=== PATIENT | female | born 1960 | race Caucasian/White ===

== ENCOUNTER 2019-01-16 08:03 | Emergency (ER) | payer MEDICARE, MEDICAID ==
[2019-01-16 08:41] LABS: ABSOLUTE LYMPHOCYTES (AUTO) 1.4 10^3/uL (0.5-4.7); ABSOLUTE MONOCYTES (AUTO) 0.4 10^3/uL (0.1-1.4); ABSOLUTE NEUT (AUTO) 4.6 10^3/uL (1.7-8.2); BASOPHILS % (AUTO) 0.6 % (0-2); EOSINOPHILS % (AUTO) 0.4 % (0-6); HEMATOCRIT 37.1 % (36.0-47.0); HEMOGLOBIN 12.6 g/dL (12.0-15.5); LYMPHOCYTES % (AUTO) 21.4 % (13-45); MEAN CORPUSCULAR HEMOGLOBIN 29.5 pg (27.0-33.4); MEAN CORPUSCULAR HGB CONC 33.8 g/dL (32.0-36.0); MEAN CORPUSCULAR VOLUME 87 fl (80-97); MONOCYTES % (AUTO) 5.6 % (3-13); PLATELET COUNT 169 10^3/uL (150-450); RED BLOOD COUNT 4.26 10^6/uL (3.72-5.28); RED CELL DISTRIBUTION WIDTH 13.4 % (11.5-14.0); TOTAL CELLS COUNTED % (AUTO) 100 %; WHITE BLOOD COUNT 6.4 10^3/uL (4.0-10.5)
[2019-01-16] MEDS ORDERED: NORMAL SALINE 1000 ML 1,000 ML IV ONE (08:43)
--- NOTE | 2019-01-16 08:45 | ER Document Report ---
ED General - General Mode of Arrival: Medic Information source: Emergency Med Personnel - HPI Onset: Just prior to arrival Quality of pain: No pain Associated symptoms: None <FAUSTO DICK - Last Filed: 01/16/19 20:11> <BUCK BLACKBURN - Last Filed: 01/17/19 06:34> <KATE GONZALEZ - Last Filed: 01/17/19 10:02> <FRANCISCO JAVIER HIGGINBOTHAM - Last Filed: 01/17/19 12:08> - General Chief Complaint: Psych Problem Stated Complaint: PSYCH PROBLEM Time Seen by Provider: 01/16/19 08:18 Primary Care Provider: [facility] [Outside] - Follow up as needed [facility] [Outside] - Follow up as needed Notes: Patient presents to the emergency department via EMS. Patient was found wandering down the road barefoot. Patient was telling the paramedics they are going to kill me. Patient was very paranoid flailing her arms around. Patient does not have any kind of identification on her. Patient does appear to be very dehydrated urine is very dark-colored mouth is dry no dentures in. No obvious trauma noted. Skin with multiple insect bites. No obvious IV tracts noted (FAUSTO DICK) - Related Data Allergies/Adverse Reactions: No Known Allergies Allergy (Unverified 01/16/19 19:42) Past Medical History - General Information source: Patient - Social History Smoking Status: Current Every Day Smoker Cigarette use (# per day): Yes Frequency of alcohol use: None Drug Abuse: None - denies Family History: Reviewed & Not Pertinent Patient has suicidal ideation: No Patient has homicidal ideation: No - Medical History Medical History: Negative Past Surgical History: Reports: Hx Inguinal Hernia <FAUSTO DICK - Last Filed: 01/16/19 20:11> - Social History Family History: Reviewed & Not Pertinent <BUCK BLACKBURN - Last Filed: 01/17/19 06:34> Review of Systems <FAUSTO DICK - Last Filed: 01/16/19 20:11> - Review of Systems Notes: Review HPI for review of systems., All other systems negative (FAUSTO DICK) Physical Exam - General General appearance: Other - Patient has been medicated with Benadryl and Haldol. Patient does respond to the name Piedad. And will open her eyes with verbal stimulation In distress: None - HEENT Head: Normocephalic Eyes: Normal Conjunctiva: Normal Extraocular movements intact: Yes Eyelashes: Normal Pupils: PERRL Nasal: Normal Mouth/Lips: Normal - no teeth, no dentures Mucous membranes: Dry Neck: Normal, Supple - Respiratory Respiratory status: No respiratory distress Chest status: Nontender Breath sounds: Normal Chest palpation: Normal - Cardiovascular Rhythm: Regular Heart sounds: Normal auscultation Murmur: Yes - Abdominal Inspection: Normal Distension: No distension Bowel sounds: Normal Tenderness: Nontender Organomegaly: No organomegaly - Back Back: Normal, Nontender - Extremities General upper extremity: Normal ROM General lower extremity: Normal ROM - Skin Skin Temperature: Warm Skin Moisture: Dry Location of irregularity: Generalized Irregularity with: Other - insect bites <FAUSTO DICK - Last Filed: 01/16/19 20:11> - Vital signs Vitals: Temp Pulse Resp BP Pulse Ox 97.4 F 75 16 154/68 H 100 01/16/19 08:04 01/16/19 08:04 01/16/19 08:04 01/16/19 08:04 01/16/19 08:04 Course - Laboratory Result Diagrams: 01/16/19 08:10 01/16/19 08:10 - Diagnostic Test Radiology reviewed: Image reviewed, Reports reviewed - EXAM DESCRIPTION: CT HEAD WITHOUT COMPLETED DATE/TIME: 01/16/2019 8:56 am REASON FOR STUDY: change in loc COMPARISON: None. TECHNIQUE: Axial images acquired through the brain without intravenous contrast. Images reviewed with bone, brain and subdural windows. Additional sagittal and coronal reconstructions were generated. Images stored on PACS. All CT scanners at this facility use dose modulation, iterative reconstruction, and/or weight based dosing when appropriate to reduce radiation dose to as low as reasonably achievable (ALARA). [facility]: Dose Right [facility]: CareDose [facility]: Dose Right [facility]: Teradose 4D [facility]: Promote[employer] RADIATION DOSE: CT Rad equipment meets quality standard of care and radiation dose reduction techniques were employed. CTDIvol: 53.2 mGy. DLP: 1044 mGy-cm. mGy. LIMITATIONS: None. FINDINGS: VENTRICLES: Normal size and contour. CEREBRUM: No masses. No hemorrhage. No midline shift. No evidence for acute infarction. N ormal salas/white matter differentiation. No areas of low density in the white matter. CEREBELLUM: No masses. No hemorrhage. No alteration of density. No evidence for acute infarction. EXTRAAXIAL SPACES: No fluid collections. No masses. ORBITS AND GLOBE: No intra- or extraconal masses. Normal contour of globe without masses. CALVARIUM: No fracture. PARANASAL SINUSES: No fluid or mucosal thickening. SOFT TISSUES: No mass or hematoma. OTHER: No other significant finding. IMPRESSION: No acute intracranial pathology. EVIDENCE OF ACUTE STROKE: NO. - EKG Interpretation by Me EKG shows normal: Sinus rhythm Rhythm: NSR Thatcher/QRS: RBBB When compared to previous EKG there are: Changes noted - EKG shows new onset right bundle branch block <FAUSTO DICK - Last Filed: 01/16/19 20:11> - Laboratory Result Diagrams: 01/16/19 08:10 01/16/19 08:10 <BUCK BLACKBURN - Last Filed: 01/17/19 06:34> - Laboratory Result Diagrams: 01/16/19 08:10 01/16/19 08:10 <KATE GONZALEZ - Last Filed: 01/17/19 10:02> - Laboratory Result Diagrams: 01/16/19 08:10 01/16/19 08:10 <FRANCISCO JAVIER HIGGINBOTHAM - Last Filed: 01/17/19 12:08> - Re-evaluation Re-evalutation: 01/16/19 11:37 Patient is more awake answering questions reports her name is Piedad Cr. Patient is negative for EtOH aspirin and Tylenol. Positive for marijuana and b enzos. Confirmation sent. Psych advises Thorazine as needed and Cogentin daily. 01/16/19 15:12 Patient sleeping but arouses easily. Reports she does have a home, lives in [place]. Reports she is living with a man and that is his brother. 01/16/19 15:39 Discussed patient with Kate for mental health. She reports she has not been in to assess patient because patient has been sleeping. She reports she plans on waiting until the patient came down since she is positive for meth and marijuana. 01/16/19 19:26 Patient is awake. ate her dinner. Patient denies taking any kind of illegal drugs. Patient reports she does not remember parts of the past night. Patient is worried that her dog is missing. Is worried she left the dog in the car. She does not remember where her car is. Patient reports that she believes she was abducted. 24-hour hold initiated. Patient was instructed on this. Will be reevaluated in the morning. nicotine patch ordered. ANAI Elizondo contacted patient's sister. They are now looking for patient's dog. 01/16/19 20:11 report given to buck blackburn [employer] (FAUSTO DICK) 01/17/19 06:10 No acute events overnight. Patient resting comfortably with no acute distress noted. Patient has been calm and cooperative with any interactions. Currently awaiting mental health evaluation this am, patient updated on plan of care. (BUCK BLACKBURN) - Vital Signs Vital signs: Temp Pulse Resp BP Pulse Ox 97.8 F 67 18 109/59 L 97 01/17/19 10:03 01/17/19 10:03 01/17/19 10:03 01/17/19 10:03 01/17/19 10:03 - Laboratory Laboratory results interpreted by me: 01/16/19 01/16/19 08:10 08:32 Sodium 145.7 H Potassium 3.3 L Chloride 113 H BUN 21 H AST 62 H ALT 61 H Total Protein 6.2 L Urine Protein 100 H Urine Ketones 20 H Urine Ascorbic Acid 40 H Salicylates < 1.0 L Acetaminophen < 10 L Discharge <FAUSTO DICK - Last Filed: 01/16/19 20:11> <BUCK BLACKBURN - Last Filed: 01/17/19 06:34> <KATE GONZALEZ - Last Filed: 01/17/19 10:02> <FRANCISCO JAVIER HIGGINBOTHAM - Last Filed: 01/17/19 12:08> - Discharge Clinical Impression: Substance abuse, Altered mental status, Methamphetamine abuse, Cannabis abuse Condition: Stable Disposition: HOME, SELF-CARE Additional Instructions: You have been evaluated by both medical and behavioral health providers. You have been cleared from both acute medical and psychiatric services. It is felt your altered mental status was due to your reported lack of sleep from driving 7 hours and then being up all day, walking around and living out of your vehicle and use of methamphetamine and cannabis. You have been provided with the [facility] Sheet for local resources related to social needs, mental health/substance abuse treatment and crisis services. Altered Mental Status An altered mental status is a change in the normal functioning of the brain. This alteration of function can range from minor decreased brain function with some forgetfulness and confusion to complete loss of consciousness and coma. There are many possible causes of an altered mental status and include brain injuries such as trauma or strokes, problems with oxygen supply to the brain, fever and infections of the brain and/or elsewhere in the body, metabolic abnormalities such as low or high blood sugar, overdoses or excessive medication ingestion, and mental and psychiatric illnesses. Sometimes the altered mental status resolves and a definite cause is not determined. If a cause for your altered mental status was found, it has likely been corrected. Your evaluation has not shown any condition that requires that you be admitted to the hospital. It is believed that you are safe to leave and return to your home. If you have a return of your symptoms, you should return for re-evaluation. AMPHETAMINE / METHAMPHETAMINE ABUSE: (also Cannabis) Amphetamines are addicting stimulants. Amphetamines overstimulate the nervous system and give a false feeling of power and mastery. These drugs may be obtained as prescription pills for weight loss, narcolepsy, or attention-deficit disorder. More often they're bought as an illegal street drug, methamphetamine (crank, crystal, speed). Using amphetamines repeatedly can lead to serious medical problems including malnutrition, severe depression, and paranoia. It can take increasing amounts to feel good. Eventually, there will be a "burn out." When you go off amphetamines there is a period of depression that may last for weeks or even months. High doses of amphetamines can cause seizures, confusion, hallucinations, delusions, high blood pressure, muscle damage, heart damage, or sudden . Many times these deadly complications occur even with "normal" doses. Injection of amphetamines is risky for developing abscesses, endocarditis (heart infection), pneumonia, and AIDS. Withdrawal from amphetamines often causes anxiety, depression, and drug cravings. Some users become paranoid and psychotic. There may be cramps, nausea, and vomiting. Many treatment programs are available, but you must make the decision to quit. Medication can be prescribed to control the symptoms of amphetamine toxicity (beta blockers or benzodiazepines). Withdrawal symptoms may require tranquilizers. FOLLOW-UP CARE: You should refrain from using methamphetamines and cannabis as these have been known to cause paranoia and psychosis. You have been provided the [facility] Sheet which has highlighted [facility] (crisis, talk therapy, linkage to other supports and services, [facility] (outpatient mental health and substance abuse treatment) and [facility] (local homeless [facility]) for some of your social needs. If you experience worsening or a significant change in your symptoms, notify the physician immediately, utilize mobile crisis or return to the Emergency Department at any time for re-evaluation. Referrals: [facility] Crisis Team [Outside] - Follow up as needed [facility] [Outside] - Follow up as needed
[2019-01-16 08:59] LABS: ALANINE AMINOTRANSFERASE 61 U/L (9-52); ALBUMIN 3.7 g/dL (3.5-5.0); ALKALINE PHOSPHATASE 90 U/L (38-126); ANION GAP 8 (5-19); ASPARTATE AMINO TRANSFERASE 62 U/L (14-36); BILIRUBIN,DIRECT 0.3 mg/dL (0.0-0.4); BILIRUBIN,TOTAL 0.6 mg/dL (0.2-1.3); BLOOD UREA NITROGEN 21 mg/dL (7-20); CALCIUM 8.9 mg/dL (8.4-10.2); CARBON DIOXIDE 25 mmol/L (22-30); CHLORIDE 113 mmol/L (98-107); GLUCOSE 102 mg/dL (75-110); POTASSIUM 3.3 mmol/L (3.6-5.0); SODIUM 145.7 mmol/L (137-145); TOTAL PROTEIN 6.2 g/dL (6.3-8.2)
[2019-01-16 09:02] LABS: ACETAMINOPHEN < 10 ug/mL (10-30); ALCOHOL < 10 mg/dL (NONE DETECTED); SALICYLATE < 1.0 mg/dL (2.0-20.0)
[2019-01-16 09:03] LABS: URINE BARBITURATES SCREEN NEGATIVE; URINE BENZODIAZEPINES SCREEN NEGATIVE; URINE COCAINE SCREEN NEGATIVE; URINE MARIJUANA (THC) SCREEN UNCONFIRMED POSITIVE; URINE METHADONE SCREEN NEGATIVE; URINE PHENCYCLIDINE SCREEN NEGATIVE
[2019-01-16 09:06] LABS: APPEARANCE,URINE SLIGHTLY-CLOUDY; BILIRUBIN,URINE NEGATIVE (NEGATIVE); COLOR,URINE AMBER; GLUCOSE, URINE NEGATIVE (NEGATIVE); KETONES,URINE 20 mg/dL (NEGATIVE); LEUKOCYTE ESTERASE,URINE NEGATIVE (NEGATIVE); NITRITE,URINE NEGATIVE (NEGATIVE); PROTEIN,URINE 100 mg/dL (NEGATIVE); URINE SPECIFIC GRAVITY 1.029; UROBILINOGEN,URINE NEGATIVE mg/dL (<2.0)
--- NOTE | 2019-01-16 09:12 | RADIOLOGY REPORT (SQ) ---
EXAM DESCRIPTION: CT HEAD WITHOUT COMPLETED DATE/TIME: 01/16/2019 8:56 am REASON FOR STUDY: change in loc COMPARISON: None. TECHNIQUE: Axial images acquired through the brain without intravenous contrast. Images reviewed wi th bone, brain and subdural windows. Additional sagittal and coronal reconstructions were generated. Images stored on PACS. All CT scanners at this facility use dose modulation, iterative reconstruction, and/or weight based d osing when appropriate to reduce radiation dose to as low as reasonably achievable (ALARA). [facility]: Dose Right [facility]: CareDose [facility]: Dose Right [facility]: Teradose 4D [facility]: [employer] RADIATION DOSE: CT Rad equipment meets quality standard of care and radiation dose reduction techniq ues were employed. CTDIvol: 53.2 mGy. DLP: 1044 mGy-cm. mGy. LIMITATIONS: None. FINDINGS: VENTRICLES: Normal size and contour. CEREBRUM: No masses. No hemorrhage. No midline shift. No evidence for acute infarction. Normal gra y/white matter differentiation. No areas of low density in the white matter. CEREBELLUM: No masses. No hemorrhage. No alteration of density. No evidence for acute infarction. EXTRAAXIAL SPACES: No fluid collections. No masses. ORBITS AND GLOBE: No intra- or extraconal masses. Normal contour of globe without masses. CALVARIUM: No fracture. PARANASAL SINUSES: No fluid or mucosal thickening. SOFT TISSUES: No mass or hematoma. OTHER: No other significant finding. IMPRESSION: No acute intracranial pathology. EVIDENCE OF ACUTE STROKE: NO. COMMENT: Quality ID # [id number]: Final reports with documentation of one or more dose reduction techniques (e.g., Automated exposure control, adjustment of the mA and/or kV according to patient size, use of iterative reconstruction technique) TECHNICAL DOCUMENTATION: JOB ID: [id number] [employer]- All Rights Reserved Reading location - IP/workstation name: [email or web address]
[2019-01-16] MEDS ORDERED: CHLORPROMAZINE HCL 50 MG TABLET PO PRN (11:07)
[2019-01-16] MEDS: BENZTROPINE MESYLATE 1 MG TABLET PO SCH (11:26)
--- NOTE | 2019-01-16 12:47 | EKG REPORT ---
SEVERITY:- ABNORMAL ECG - SINUS RHYTHM RIGHT BUNDLE BRANCH BLOCK : Confirmed by: Catrachito España MD 16-Jan-2019 12:47:30
--- NOTE | 2019-01-16 16:42 | PSYCHOLOGICAL NOTE ---
Psych Note - Psych Note Date seen by psych provider: 01/16/19 Psych Note: Presenting Problem: JPD/EMS Diagnosis: Polysubstance Use Methamphetamine Use Cannabis Use AMS Paranoia/Delusional Medication recommendations made by the psychiatric medical provider, Dr. Chet MD., includes: Add Thorazine 50MG every 8 hours as needed for psychosis/agitation Add Cogentin 1MG daily to curb tremor side effects often associated with antipsychotic medications Impression/Plan: Hold overnight reassess in the morning after chance to sober up. Consulted with Dr. Bustos regarding the management and care of patient. ED Physician in agreement with recommendations.
[2019-01-16] MEDS ORDERED: NICOTINE 14 MG/24 HR PATCH.TD24 TD ONE (19:26)
[2019-01-17] MEDS: BENZTROPINE MESYLATE 1 MG TABLET PO SCH (09:14)
[2019-01-17] MEDS ORDERED: POTASSIUM CHLORIDE 10 MEQ CAPSULE.ER PO ONE (09:45)
--- NOTE | 2019-01-17 10:21 | PSYCHOLOGICAL NOTE ---
Psych Note - Psych Note Date seen by psych provider: 01/17/19 Psych Note: Presenting problem: 24 Hour IVC Petition due to AMS and LE/EMS finding patient walking around, barefoot, dirty skin and fingernails, paranoid and delusional (said people were out to kill her and her baby, said people changed her last name) and was unable to provide last name/date of . UDS positive for methamphetamine and cannabis which she denied using and said she was around people who were using a hookah. Today she is more alert and oriented, able to carry on dialogue conversation and aware of surroundings. She noted individuals named Joseph Falcon and Santana [phone]). Diagnosis: Polysubstance Use Methamphetamine Use Cannabis Use AMS Paranoia/Delusional Impression/Plan: Patient is cleared from acute psychiatric services. Recommendation to rescind 24 Hour IVC Petition. Today she is more alert and oriented, has had time to sober up and denied SI/HI (these were never presenting concerns). Provided patient with the [facility] Sheet which highlighted local Homeless Skilled Nursing, [facility] and [facility]. This sheet also contains other important information for social needs. Consulted with Dr. Bustos regarding the management and care of patient. ED Physician in agreement with recommendations.
--- NOTE | 2019-01-17 10:25 | ER Document Report ---
Doctor's Note Notes: 01/17/19 10:23 Rounds: Chart reviewed. Patient sleeping soundly so I did not awaken her. Being evaluated for polysubstance abuse, found wandering on the street. Lab studies show sodium and chloride slightly elevated and potassium of 3.3. Drug screen positive for amphetamines and marijuana. Blood pressure 92/77, but I am sure that clinically is not significant. Patient appears to be medically stable for transfer or discharge. Marisa Murillo MD
[2019-01-17 13:12] VITALS: BP 135/85
== END 2019-01-17 13:29 | disposition home or self-care (01) ==
LOC: ER 08:03 → EDBD 08:03 → ER 01-17 13:29
DX: F15.10 Other stimulant abuse, uncomplicated (principal); R41.82 Altered mental status, unspecified; F12.10 Cannabis abuse, uncomplicated; F17.210 Nicotine dependence, cigarettes, uncomplicated
CPT/HCPCS: 93005; 99285; 36415; 80307 ×5; 84703; 85025; 80053; 81001; 70450; 93010; G0480; A9270 ×3; J7030